=== PATIENT | female | born 1990 | race American Indian/Alaskan Native ===

== ENCOUNTER 2018-01-02 03:06 | Emergency (ER) | payer OTHER ==
[2018-01-02 03:14] VITALS: BP 138/90
[2018-01-02] MEDS ORDERED: BENADRYL ONE (04:24)
[2018-01-02] MEDS ORDERED: TORADOL ONE (04:24)
[2018-01-02] MEDS ORDERED: REGLAN ONE (04:24)
--- NOTE | 2018-01-02 04:29 | Emergency Department Report ---
ED Headache HPI - General Chief Complaint: Headache Stated Complaint: H/A Time Seen by Provider: 01/02/18 04:22 - History of Present Illness Initial Comments: 27-year-old Rubina female comes in reporting intermittent headache 1 month. Patient reports that she usually gets them about once a month but they' re coming more often. Patient does complain of photosensitivity. Denies any nausea vomiting. She reports that ibuprofen use takes her pain from a migraine to her headache. Does have a primary care provider but has not been referred to neurology at this point. Timing/Duration: waxing and waning Quality: severe, achy, throbbing Head Injury Location: frontal Recent Head Trauma: no recent headache/trauma, frequent headaches, chronic headaches Modifying Factors: improves with: exposure to light Associated Symptoms: denies: fever/chills, nausea/vomiting, nasal congestion Allergies/Adverse Reactions: Allergies No Known Allergies Allergy (Unverified 01/02/18 04:37) Home Medications: Ambulatory Orders Butalb/Acetamin/Caff 50-325-40 [Fioricet] 1 tab PO Q8HR PRN #15 tablet 01/02/18 ED Review of Systems ROS: Stated complaint: H/A Other details as noted in HPI Constitutional: denies: chills, fever Eyes: other (photosensitivity) Gastrointestinal: denies: nausea, vomiting Neurological: headache. denies: abnormal gait ED Past Medical Hx - Past Medical History Previous Medical History?: No - Surgical History Past Surgical History?: No - Social History Smoking Status: Current Every Day Smoker Substance Use Type: Alcohol - Medications Home Medications: Home Medications Medication Instructions Recorded Confirmed Last Taken Type Butalb/Acetamin/Caff 50-325-40 1 tab PO Q8HR PRN #15 tablet 01/02/18 Unknown Rx [Fioricet] ED Physical Exam - General Limitations: No Limitations - Eye Eye exam: Present: EOMI - ENT ENT exam: Present: mucous membranes moist - Back Exam Back exam: Present: normal inspection - Neurological Exam Neurological exam: Present: alert, oriented X3 - Expanded Neurological Exam Expanded Patient oriented to: Present: person, place, time Speech: Present: fluid speech Cranial nerves: EOM's Intact: Normal, Gag Reflex: Normal, Tongue Deviation: Normal, Facial Sensation: Normal Cerebellar function: Finger to Nose: Normal, Heel to Ho: Normal Upper motor neuron: [place] Neglect: Normal, Pronator Drift: Normal Sensory exam: Upper Extremity Light Touch: Normal Motor strength exam: RUE: 4, LUE: 4, RLE: 4, LLE: 4 Best Eye Response ([place]): (4) open spontaneously Best Motor Response ([place]): (6) obeys commands Best Verbal Response ([place]): (5) oriented [place] Total: 15 - Psychiatric Psychiatric exam: Present: normal affect, normal mood - Skin Skin exam: Present: warm, dry, intact, normal color. Absent: rash ED Course Vital Signs 01/02/18 03:09 Temperature 97.6 F Pulse Rate 78 Respiratory 18 Rate Blood Pressure 138/90 O2 Sat by Pulse 100 Oximetry Critical care attestation.: If time is entered above; I have spent that time in minutes in the direct care of this critically ill patient, excluding procedure time. ED Disposition Clinical Impression: Migraine Qualifiers: Migraine type: unspecified Status migrainosus presence: without status migrainosus Intractability: intractable Qualified Code(s): G43.919 - Migraine, unspecified, intractable, without status migrainosus Disposition: DC-01 TO HOME OR SELFCARE Is pt being admited?: No Does the pt Need Aspirin: No Condition: Stable Instructions: Migraine Headache (ED) Additional Instructions: These take medication as needed for migraine. Please follow up with neurology for further evaluation of her chronic headaches. Prescriptions: Butalb/Acetamin/Caff 50-325-40 [Fioricet] 1 tab PO Q8HR PRN #15 tablet PRN Reason: Headache Referrals: PRIMARY CARE, [Primary Care Provider] - 3-5 Days KYA LOJA MD [Staff Physician] - 3-5 Days OUMAR WOLF MD [Referring] - 3-5 Days SARAH SHEEHAN MD [Staff Physician] - 3-5 Days QZ,QBessie [Staff Physician] - 3-5 Days Forms: Work/School Release Form(ED)
[2018-01-02] MEDS ORDERED: TORADOL IV ONE (04:37)
[2018-01-02] MEDS ORDERED: BENADRYL IV ONE (04:37)
[2018-01-02] MEDS ORDERED: REGLAN IV ONE (04:37)
== END 2018-01-02 04:45 | disposition home or self-care (01) ==
LOC: ED 03:06
DX: G43.919 Migraine, unspecified, intractable, without status migrainosus (principal); L56.8 Other specified acute skin changes due to ultraviolet radiation; F17.200 Nicotine dependence, unspecified, uncomplicated
CPT/HCPCS: 96374; 96375; 99282; J1200; J1885; J2765